=== PATIENT | male | born 1985 | race Native Hawaiian/Other Pacific Islander ===

== ENCOUNTER 2022-07-27 13:59 | Emergency (ER) | payer OTHER ==
[~2022-07-27] VITALS: Ht 170.2 cm; Wt 72.6 kg
[2022-07-27 14:00] VITALS: TEMP 97.8
[2022-07-27 15:24] LABS: PLATELET COUNT 279 K/uL (142-355); POTASSIUM 3.7 mmol/L (3.6-5.2)
[2022-07-27 16:58] VITALS: BP 138/88
== END 2022-07-27 16:59 | disposition still patient (30) ==
LOC: ED 13:59
PROVIDERS: Emergency Medicine
DX: F41.8 Other specified anxiety disorders (principal); F43.9 Reaction to severe stress, unspecified; Z20.822 Contact with and (suspected) exposure to COVID-19
CPT/HCPCS: 80053; 80143; 80179; 80307; 80320; 81002; 85027; 87635; 93005; 99285; U0003